=== PATIENT | male | born 1985 | race American Indian/Alaskan Native ===

== ENCOUNTER 2021-03-05 08:07 | Emergency (ER) | payer OTHER ==
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
== END 2021-03-05 09:03 | disposition home or self-care (01) ==
LOC: JD.ED 08:07
DX: Z04.1 Encounter for examination and observation following transport accident (principal)
CPT/HCPCS: 99284